=== PATIENT | female | born 1975 | race Caucasian/White ===

== ENCOUNTER 2022-11-19 16:08 | Observation (INO) ==
[~2022-11-19 16:08] MED LIST: DICLOFENAC SOD 1% GEL 100 GM TUBE EXT SCH
[2022-11-19] MEDS ORDERED: SODIUM CHLORIDE 0.9% 1000ML 2,000 ML IV ONE (16:38)
--- NOTE | 2022-11-19 16:38 | Emergency Department Note ---
Impression & Plan Superficial thrombophlebitis, Pneumonia, Elevated troponin, Palpitations ED Provider Note NAME: CHELY FELIX AGE: 47 SEX: F : 1975 ARRIVES VIA: Walk-In INFORMANT: Patient ED PROVIDER(S): Sea Davis DO CHIEF COMPLAINT: left arm pain HPI: Patient is a 47-year-old female who presents to the ED for swelling in the left forearm with redness. Patient notes that she was seen and had multiple IVs in the left forearm. He did have a difficult time. Following this she has been having swelling and redness. She was seen at the [facility] and admitted on . She has been placed on antibiotics. She was sent in today for the swelling. She notes that she feels her heart is racing. Denies any headache or change in vision. No chest pain or shortness of breath. No belly pain, nausea, vomiting, or diarrhea. No dysuria, urgency or frequency. PAST MEDICAL HISTORY:See Below PAST SURGICAL HISTORY:See Below FAMILY HISTORY:See Below SOCIAL HISTORY:See Below HOME MEDICATIONS:See Below ALLERGIES:See Below VITALS:See Below PHYSICAL EXAMINATION: GENERAL: Sitting up in bed, alert, well appearing, well nourished, no distress, non-toxic EYE EXAM: normal conjunctiva. OROPHARYNX: no exudate, no erythema, lips, buccal mucosa, and tongue normal and mucous membranes are moist NECK: supple, no nuchal rigidity, no adenopathy, non-tender LUNGS: Clear to auscultation. Normal chest wall mechanics HEART: no murmurs, S1 normal and S2 normal ABDOMEN: abdomen soft, non-tender, normo-active bowel sounds, no masses, no rebound or guarding. UPPER EXTREMITIES: Palmar surface left forearm with erythema over top of the vein which is firm and tender. Tracks up to the elbow LOWER EXTREMITIES: No pitting edema. NEURO EXAM: Normal sensorium, cranial nerves II-XII grossly intact, normal speech, no gross weakness of arms, no gross weakness of legs. MEDICAL DECISION MAKING: Patient is a 47-year-old female who presents ER for above-stated complaint. IV was established blood work was obtained. Labs show no significant leukocytosis. Mild anemia 11.8. INR unremarkable. BMP along with LFTs bilirubin was unremarkable. Troponin was elevated 25. COVID was negative. CT angio was performed with concern for pneumonia. No PEs. Venous Doppler shows superficial thrombophlebitis greater than 5 cm as I discussed this with Dr. Nishant Chauhan. Patient was given Lovenox. With the elevated troponin although an unremarkable EKG and a very subtle pneumonia which I do not feel is causing the bump in the troponin I discussed the case with the hospitalist for further observation. Patient was given IV antibiotics. patient denied any risk for brain bleeds including coughing up blood, vomiting blood, urinating blood, dark stools or blood in the stool, recent surgery or trauma or previous head bleeds Triage Nursing notes reviewed. Limited review of prior medical records performed Vital Signs: reviewed and remarkable for tachy Differential diagnosis: Cardiac ischemia, aortic dissection, pulmonary embolism, pneumothorax, pneumonia, pericarditis, myocarditis, esophageal rupture, GERD, cholecystitis, pancreatitis, musculoskeletal, as well as other pathologies. ER treatment provided: See below Diagnostics interpreted by me include EKG and cardiac monitoring as listed below: -Cardiac Monitoring: An order was placed for continuous cardiac monitoring. The monitor shows a rate of 90 with sinus rhythm. -ECG: Sinus rhythm rate of 96 Normal axis No PVCs Nonspecific ST wave in V2 -Laboratory studies:Interpreted by me as stated above in MDM and shown below. Imaging studies: Xrays: As interpreted by me:none CTs show: CT angio of the chest showed no obvious proximal clot per my read Ultrasound shows superficial thrombophlebitis Consultation(s): As described in MDM discussed with Nathanael from [facility] Procedures:none Critical Care: None Past Med/Surg History Social History Smoking Status: Current every day smoker Feels Safe at Home: Yes Results & Data (ED) Vital Signs Vital Signs - 24 hr 11/19/22 16:11 11/19/22 19:00 Temperature 36.7 C Temperature Source Temporal Artery Scan Pulse Rate 108 H Pulse Rate [Apical] 91 H Pulse Rhythm [Apical] Regular Pulse Strength [Apical] Normal Respiratory Rate 18 18 Respiratory Effort / Characteristics Non-Labored Spontaneous Non-Labored Spontaneous Respiratory Depth Normal Normal Respiratory Pattern Regular Blood Pressure 121/71 Blood Pressure [Right Arm] 111/61 Blood Pressure Mean 87 Blood Pressure Mean [Right Arm] 77 Pulse Oximetry 97 98 Oxygen Delivery Method Room Air Room Air Sepsis Recent Fever Within 48 Hours No Sepsis New/Unexplained Change in Mental Status N/A Sepsis Action Taken by Nursing No Action Required Laboratory Data 11/19/22 14:53 11/19/22 16:50 Lab Results 11/19/22 11/19/22 11/19/22 Range/Units 14:53 16:50 16:50 WBC 10.31 (4.8-10.8) K/ul RBC 4.10 L (4.20-5.40) M/uL Hgb 11.8 L (12.0-16.0) g/dl Hct 35.6 L (37.0-47.0) % MCV 86.8 (80.0-100.0) fL MCH 28.8 (25.0-34.0) pg MCHC 33.1 (32.0-36.0) g/dL RDW Std Deviation 46.5 H (36.4-46.3) fL RDW Coeff of Jonathon 14.7 H (11.5-14.5) % Plt Count 293 (130-400) K/uL MPV 10.6 (9.4-12.4) fL Immature Gran % (Auto) 0.3 % Neut % (Auto) 63.6 % Lymph % (Auto) 18.8 % Coosa % (Auto) 9.1 % Eos % (Auto) 7.8 % Baso % (Auto) 0.4 % Neut # (Auto) 6.56 H (1.40-6.50) K/uL Lymph # (Auto) 1.94 (1.2-3.4) K/uL Coosa # (Auto) 0.94 H (0.11-0.59) K/uL Eos # (Auto) 0.80 H (0-0.50) K/uL Baso # (Auto) 0.04 (0-0.2) K/uL Immature Gran # (Auto) 0.03 (0.01-0.20) K/uL PT 10.8 (9.0-12.0) Seconds INR 1.0 (0.9-1.1) Sodium 137 (136-145) mmol/L Potassium 3.5 (3.5-5.1) mmol/L Chloride 104 (98-107) mmol/L Carbon Dioxide 22 (21-32) mmol/L Anion Gap 11 (3-11) BUN 16 (6-23) mg/dl Creatinine 0.68 (0.6-1.2) mg/dl Est Cr Clr Drug Dosing 116.0 ml/min Est GFR ( Amer) 120.7 ml/min Est GFR (Non-Af Amer) 104.2 ml/min BUN/Creatinine Ratio 23.5 H (10-20) Glucose 143 H (70-99(Fasting)) mg/dl Calcium 9.6 (8.6-10.3) mg/dl Total Bilirubin 0.5 (0.2-1.0) mg/dl AST 21 (13-39) U/L ALT 19 (7-52) U/L Alkaline Phosphatase 71 (34-104) U/L Troponin I High Sens 24.8 H (0-14) pg/ml Total Protein 7.2 (6.0-8.3) gm/dl Albumin 4.1 (3.4-5.0) gm/dl Globulin 3.1 (2.5-4.0) gm/dl Albumin/Globulin Ratio 1.3 (0.9-2) SARS-CoV-2, RNA, NAAT (NEGATIVE) 11/19/22 Range/Units 21:10 WBC (4.8-10.8) K/ul RBC (4.20-5.40) M/uL Hgb (12.0-16.0) g/dl Hct (37.0-47.0) % MCV (80.0-100.0) fL MCH (25.0-34.0) pg MCHC (32.0-36.0) g/dL RDW Std Deviation (36.4-46.3) fL RDW Coeff of Jonathon (11.5-14.5) % Plt Count (130-400) K/uL MPV (9.4-12.4) fL Immature Gran % (Auto) % Neut % (Auto) % Lymph % (Auto) % Coosa % (Auto) % Eos % (Auto) % Baso % (Auto) % Neut # (Auto) (1.40-6.50) K/uL Lymph # (Auto) (1.2-3.4) K/uL Coosa # (Auto) (0.11-0.59) K/uL Eos # (Auto) (0-0.50) K/uL Baso # (Auto) (0-0.2) K/uL Immature Gran # (Auto) (0.01-0.20) K/uL PT (9.0-12.0) Seconds INR (0.9-1.1) Sodium (136-145) mmol/L Potassium (3.5-5.1) mmol/L Chloride (98-107) mmol/L Carbon Dioxide (21-32) mmol/L Anion Gap (3-11) BUN (6-23) mg/dl Creatinine (0.6-1.2) mg/dl Est Cr Clr Drug Dosing ml/min Est GFR ( Amer) ml/min Est GFR (Non-Af Amer) ml/min BUN/Creatinine Ratio (10-20) Glucose (70-99(Fasting)) mg/dl Calcium (8.6-10.3) mg/dl Total Bilirubin (0.2-1.0) mg/dl AST (13-39) U/L ALT (7-52) U/L Alkaline Phosphatase (34-104) U/L Troponin I High Sens (0-14) pg/ml Total Protein (6.0-8.3) gm/dl Albumin (3.4-5.0) gm/dl Globulin (2.5-4.0) gm/dl Albumin/Globulin Ratio (0.9-2) SARS-CoV-2, RNA, NAAT NEGATIVE (NEGATIVE) Administered Medications Enoxaparin Sodium (Enoxaparin 80 Mg/0.8 Ml Syr) 80 mg SQ Q12H ANIYA Stop: 12/19/22 20:59 Last Admin: 11/19/22 20:45 Dose: 80 mg Documented By: BALDEV Discontinued Medications Sodium Chloride (Nss 1000ml) 2,000 mls @ 999 mls/hr IV .Q2H1M ONE Stop: 11/19/22 18:38 Last Infusion: 11/19/22 20:30 Dose: 0 mls/hr Documented By: Admin: 11/19/22 17:13 Dose: 999 mls/hr Documented By: ELVIRA Ceftriaxone Sodium (Rocephin) 2,000 mg in 70 mls @ 140 mls/hr IV NOW STA Stop: 11/19/22 20:43 Last Infusion: 11/19/22 21:31 Dose: 0 mls/hr Documented By: Admin: 11/19/22 20:45 Dose: 140 mls/hr Documented By: BALDEV Azithromycin 500 mg/ Dextrose 255 mls @ 127.5 mls/hr IV NOW STA Stop: 11/19/22 22:13 Last Admin: 11/19/22 20:42 Dose: 127.5 mls/hr Documented By: BALDEV Ioversol (Optiray 320 500ml) 115 ml IV ONCE ONE Stop: 11/19/22 19:34 Last Admin: 11/19/22 19:33 Dose: 115 ml Documented By: KIMI Imaging Data Radiologist's Impression: Extremity Venous Study 11/19/22 16:37 US venous doppler UE LT CLINICAL HISTORY: Eval for DVT PROCEDURE: Left upper extremity real-time compression venous ultrasound with Duplex and color Doppler imaging. Comparison: None available at the time of this dictation. FINDINGS/IMPRESSION: There is normal compressibility of the deep venous system from the forearm through the subclavian vein. Normal vascular flow is currently identified. A superficial venous thrombus is seen in the basilic vein in the distal upper arm antecubital fossa as well as in the cephalic vein at the proximal through mid forearm. Evaluation of the cephalic vein in the upper arm is limited. ACT 112: Negative or not required by law. Electronically signed by: Nishant Chauhan M.D. 11/19/2022 6:51 PM Chest CTA 11/19/22 16:38 CT angio chest PE protocol CLINICAL HISTORY: PE TECHNIQUE: Multidetector row helical CT of the chest was performed with angiographic protocol. Coronal and sagittal reformations were obtained. Coronal and sagittal MIPS were obtained from the axial data set and were submitted for review. Automated dose lowering techniques and/or adjustment according to patient size were utilized for this exam. CT DOSE: 442.63 mGy.cm Comparison: None available at the time of this dictation. FINDINGS: Lungs and pleura: There are a few foci of airspace opacity most prominently in the right lung. Heart and pericardium: Heart size is normal. No pericardial effusion. Vessels: No evidence of pulmonary embolism. Mediastinum and shawanda: Unremarkable. Chest wall and lower neck: Subcentimeter axillary lymph nodes noted. Abdomen: Unremarkable. Bones: Degenerative changes in the thoracic spine. Partial visualization of ACDF. IMPRESSION: 1. No pulmonary embolus is seen. 2. There are a few foci of airspace opacity most probably in the right lung wh ich may represent pneumonia. ACT 112: Negative or not required by law. Electronically signed by: Nishant Chauhan M.D. 11/19/2022 8:01 PM Discharge Plan Visit Data Chief Complaint: Arm Pain Stated Complaint: LEFT ARM PAIN ED Provider: Sea Davis Discharge Problem: Superficial thrombophlebitis, Pneumonia, Elevated troponin, Palpitations Forms Stand Alone Forms: [facility] Referrals Referrals: PCP,NO [Physician] -
[2022-11-19 17:14] LABS: Basophils # (auto) 0.04 K/uL (0-0.2); Basophils % (auto) 0.4 %; Eosinophils % (auto) 7.8 %; Hematocrit (blood only) 35.6 % (37.0-47.0); Hemoglobin 11.8 g/dl (12.0-16.0); Immature Granulocytes # (auto) 0.03 K/uL (0.01-0.20); Immature Granulocytes % (auto) 0.3 %; Lymphocytes # (auto) 1.94 K/uL (1.2-3.4); Lymphocytes % (auto) 18.8 %; Mean Corpuscular Hemoglobin 28.8 pg (25.0-34.0); Mean Corpuscular Hgb Conc 33.1 g/dL (32.0-36.0); Mean Corpuscular Volume 86.8 fL (80.0-100.0); Mean Platelet Volume 10.6 fL (9.4-12.4); Monocytes # (auto) 0.94 K/uL (0.11-0.59); Monocytes % (auto) 9.1 %; Neutrophils # (auto) 6.56 K/uL (1.40-6.50); Neutrophils % (auto) 63.6 %; Platelet Count 293 K/uL (130-400); RDW Coefficient of Variation 14.7 % (11.5-14.5); RDW Standard Deviation 46.5 fL (36.4-46.3); White Blood Count 10.31 K/ul (4.8-10.8)
[2022-11-19 17:28] LABS: Albumin Globulin Ratio 1.3 (0.9-2); Albumin Level 4.1 gm/dl (3.4-5.0); BUN Creatinine Ratio 23.5 (10-20); Bilirubin,Total 0.5 mg/dl (0.2-1.0); Calcium 9.6 mg/dl (8.6-10.3); Est GFR (African American) 120.7 ml/min; Est GFR (Non-African American) 104.2 ml/min; Globulin 3.1 gm/dl (2.5-4.0); Potassium 3.5 mmol/L (3.5-5.1); Total Protein 7.2 gm/dl (6.0-8.3)
[2022-11-19 17:35] LABS: Troponin I High Sensitivity 24.8 pg/ml (0-14)
[2022-11-19 17:46] LABS: Prothrombin Time 10.8 Seconds (9.0-12.0)
--- NOTE | 2022-11-19 18:53 | Ultrasound Report ---
US venous doppler UE LT CLINICAL HISTORY: Eval for DVT PROCEDURE: Left upper extremity real-time compression venous ultrasound with Duplex and color Doppler imaging. Comparison: None available at the time of this dictation. FINDINGS/IMPRESSION: There is normal compressibility of the deep venous system from the forearm through the subclavian vei n. Normal vascular flow is currently identified. A superficial venous thrombus is seen in the basilic vein in the distal upper arm antecubital fossa as well as in the cephalic vein at the proximal throu gh mid forearm. Evaluation of the cephalic vein in the upper arm is limited. ACT 112: Negative or not required by law. Electronically signed by: Nishant Chauhan M.D. 11/19/2022 6:51 PM
[2022-11-19] MEDS ORDERED: OPTIRAY 320 500ml IV ONE (19:33)
--- NOTE | 2022-11-19 20:03 | CT Scan Report ---
CT angio chest PE protocol CLINICAL HISTORY: PE TECHNIQUE: Multidetector row helical CT of the chest was performed with angiographic protocol. Rivero l and sagittal reformations were obtained. Coronal and sagittal MIPS were obtained from the axial carlos a set and were submitted for review. Automated dose lowering techniques and/or adjustment according to patient size were utilized for this exam. CT DOSE: 442.63 mGy.cm Comparison: None available at the time of this dictation. FINDINGS: Lungs and pleura: There are a few foci of airspace opacity most prominently in the right lung. Heart and pericardium: Heart size is normal. No pericardial effusion. Vessels: No evidence of pulmonary embolism. Mediastinum and shawanda: Unremarkable. Chest wall and lower neck: Subcentimeter axillary lymph nodes noted. Abdomen: Unremarkable. Bones: Degenerative changes in the thoracic spine. Partial visualization of ACDF. IMPRESSION: 1. No pulmonary embolus is seen. 2. There are a few foci of airspace opacity most probably in the right lung which may represent pneu monia. ACT 112: Negative or not required by law. Electronically signed by: Nishant Chauhan M.D. 11/19/2022 8:01 PM
[2022-11-19] MEDS ORDERED: cefTRIAXone SODIUM 2,000 MG/70 ML BAG IV STA (20:14)
[2022-11-19] MEDS ORDERED: AZITHROMYCIN 500 MG in DEXTROSE 5% 250 ML IV STA (20:14)
[2022-11-19] MEDS ORDERED: ENOXAPARIN 1 MG/KG SC SCH (20:15)
[2022-11-19] MEDS ORDERED: ENOXAPARIN 80 MG/0.8 ML SYR SQ SCH (21:00)
--- NOTE | 2022-11-19 22:12 | History & Physical Report ---
Date of Service November 19, 2022 Assessment & Plan (1) Superficial thrombophlebitis: Plan: -Likely due to infiltrated IV site from recent hospitalization at [facility], lower suspicion for primary coagulopathy -Lovenox 80 mg given in ER -Low threshold to discontinue anticoagulation pending pt's clinical course, suspect largely superficial/local as above -Hypercoagulable workup pending -Continue local care- Voltaren gel (avoid systemic NSAIDs given previous gastric bypass history), ice/heat application (2) Pneumonia: Plan: -CTA chest with some questionable pneumonia along with pt's reported exertional dyspnea and chest pain, however pt is afebrile with no leukocytosis -Procalcitonin pending -Continue ceftriaxone, azithromycin -Low threshold to discontinue antibiotics as further workup results/pt's clinical course progresses -Trend CBC (3) Elevated troponin: Plan: -Troponin 25 on admission -EKG without acute ischemic change -Likely demand, trend to peak -Echocardiogram pending (4) Diabetes: Plan: -Hold home semaglutide -Lantus, SSI -A1C pending (5) Depression: Plan: -Noted history, will likely be discharged back to [facility] -Currently no acute safety risk -Home medication- desvenlafaxine -Unavailable in formulary, pt can have brought in from home (6) Anemia: Plan: -Hgb 11.8 on admission -Mild normocytic anemia -Iron panel ordered for AM Plan FENGI: DM2 Code status: Full DVT ppx: Lovenox Isolation: None Dispo: Medical/surgical with telemetry History of Present Illness Chief Complaint: Arm pain Primary Care Provider: Esther Doshi Pt is 47 yo F with PMH DM2, depression, gastric bypass 10+ years prior presenting with arm pain. Pt reports impulsive suicide attempt on 11/15 due to worsening life stressors by ingesting several Unisom sleeping pills. She was hospitalized at [facility] and discharged to the [facility] psychiatric facility locally. Pt notes since 11/16 she has had progressive exertional dyspnea and occasional chest pain along with sensation of rapid heartbeat. She also noticed swelling, warmth and pain along her L medial forearm, where her IV site was located at [facility]. She states her IVs were infiltrated multiple times at [facility]. She was seen by [facility] physician who started her on antibiotics (recalls this may have been Keflex) and alternating ice/heat. This did help reduce the swelling, warmth and pain initially. However, her pain continued to worsen over the weekend and was sent to ED for further evaluation. Pt arrived to ER hemodynamically stable. Initial evaluation significant for Hgb 11.8, troponin 25, chest CTA with R airspace opacities possibly representing pneumonia, US LUE with superficial venous thrombus in basilic vein in distal upper arm antecubital fossa and cephalic vein at proximal-mid forearm. ER interventions include ceftriaxone, azithromycin, 2L NSS bolus, Lovenox 80 mg SQ. At present, pt reports continued arm pain and swelling but no warmth. She denies any active chest pain or dyspnea at present. Allergies Allergy/AdvReac Type Severity Reaction Status Date / Time metformin AdvReac Nausea Verified 11/20/22 00:01 NSAIDS (Non-Steroidal AdvReac Unknown Verified 11/20/22 00:01 Anti-Inflamma Home Medications Medication Instructions Recorded Confirmed Type desvenlafaxine succinate 100 mg 100 mg PO QPM 11/19/22 11/19/22 History tablet,extended release 24 hr gabapentin 800 mg tablet 800 mg 3XD 11/19/22 11/19/22 History semaglutide 0.25 mg or 0.5 mg (2 0.5 mg subcut WK 11/19/22 11/19/22 History mg/1.5 mL) subcutaneous pen injector (Ozempic) zolpidem 10 mg tablet 10 mg QPM 11/19/22 11/19/22 History Past Med/Surg History Social History Smoking Status: Current every day smoker Feels Safe at Home: Yes Review of Systems Review of Systems: Per HPI Physical Exam Physical Exam: General: well-appearing, no acute distress, laying in bed HEENT: PERRL, EOMI, conjunctivae clear without injection, anicteric sclerae, moist mucous membranes, clear oropharynx without exudate or erythema Neck: supple, trachea midline, no thyromegaly, no JVD, no cervical lymphadenopa thy CV: RRR, normal S1 and S2, no murmurs Resp: CTAB, no increased work of breathing, no crackles or wheezes Abd: Soft, nontender, nondistended, no guarding or rebound, no hepatosplenomegaly MSK: Normal bulk of all four extremities Neuro: AOx3, no focal motor or sensory deficits Skin: no rashes or lesions, warm and dry. +Swelling, erythema and TTP of superomedial antecubital fossa without significant warmth Ext: no LE peripheral edema or erythema, no calf swelling or posterior calf tenderness, capillary refill <2s in all four extremities, 2+ LE peripheral pulses b/l Results & Data Results & Data Vital Signs (Past 12 Hours) Vital Signs Temp Pulse Pulse Resp BP BP Pulse Ox 11/19/22 19:00 91 H 18 111/61 98 11/19/22 16:11 36.7 C 108 H 18 121/71 97 O2 Del Method 11/19/22 19:00 Room Air 11/19/22 16:11 Room Air Resident Activity Tracking Resident Involvement: Resident Care Provided Care Provided: Adult Hospital Medicine
[2022-11-19] MEDS ORDERED: GLUCAGON FOR INJ 1 MG VIAL SQ PRN (23:27)
[2022-11-19] MEDS ORDERED: HEPARIN SODIUM/DEXTROSE 25,000 UNITS/500 ML BAG IV SCH (23:27)
[2022-11-19] MEDS ORDERED: Heparin IV Adult Wt-Based Standard *NO* Bolus Protocol IV SCH (23:27)
[2022-11-19] MEDS ORDERED: CARBOHYDRATES FOR HYPOGLYCEMIA PO PRN (23:27)
[2022-11-19] MEDS ORDERED: GLUCOSE 40% GEL 15 GM TUBE PO PRN (23:27)
[2022-11-19] MEDS ORDERED: ONDANSETRON INJ 2 MG/ML 2 ML VIAL IV PRN (23:27)
[2022-11-19] MEDS ORDERED: GLUCOSE 10 TAB/TUBE PO PRN (23:27)
[2022-11-19] MEDS ORDERED: DEXTROSE 50% 50 ML SYRINGE IV PRN (23:27)
[2022-11-20] MEDS: Patient's ALLERGY Info needs ENTERED SCH ×5 (00:02→00:30)
[2022-11-20] MEDS: ACETAMINOPHEN 500 MG TAB PO SCH ×4 (00:35→18:10)
[2022-11-20 01:21] LABS: Partial Thromboplastin Ratio 1.1; Partial Thromboplastin Time 30.8 Seconds (21.0-31.0)
[2022-11-20] MEDS: DICLOFENAC SOD 1% GEL 100 GM TUBE EXT SCH ×4 (02:32→18:11)
[2022-11-20 06:53] LABS: Hematocrit (blood only) 30.1 % (37.0-47.0); Hemoglobin 9.6 g/dl (12.0-16.0); Mean Corpuscular Hemoglobin 28.1 pg (25.0-34.0); Mean Corpuscular Hgb Conc 31.9 g/dL (32.0-36.0); Platelet Count 233 K/uL (130-400); RDW Coefficient of Variation 14.8 % (11.5-14.5); RDW Standard Deviation 46.9 fL (36.4-46.3); Red Blood Count 3.42 M/uL (4.20-5.40); White Blood Count 6.06 K/ul (4.8-10.8)
[2022-11-20 07:10] LABS: Prothrombin Time 11.1 Seconds (9.0-12.0)
[2022-11-20 07:11] LABS: BUN Creatinine Ratio 16.7 (10-20); Calcium 8.4 mg/dl (8.6-10.3); Creatinine Clr Calc Pharmacy 203.4 ml/min; Est GFR (African American) 141.5 ml/min; Est GFR (Non-African American) 122.1 ml/min; Potassium 3.7 mmol/L (3.5-5.1)
[2022-11-20] MEDS: INSULIN ASPART PER UNIT CHARGE SC SCH ×3 (07:48→17:44)
[2022-11-20 08:06] LABS: Estimated Average Glucose 120 mg/dl; Hemoglobin A1C 5.8 % (4.5-5.6)
[2022-11-20] MEDS ORDERED: LANTUS PER UNIT CHARGE SQ SCH (09:00)
[2022-11-20] MEDS: GABAPENTIN 800 MG TAB PO SCH ×2 (09:12→14:19)
--- NOTE | 2022-11-20 10:32 | XCELERA ---
[id number] [id number]
[2022-11-20] MEDS ORDERED: FLUTICASONE PROPIONATE NA SPR 16 GM BTL SCH (11:30)
--- NOTE | 2022-11-20 11:37 | Electrocardiogram Report ---
Test Reason : Blood Pressure : / mmHG Vent. Rate : 096 BPM Atrial Rate : 096 BPM P-R Int : 128 ms QRS Dur : 094 ms QT Int : 396 ms P-R-T Axes : 044 016 010 degrees QTc Int : 500 ms Normal sinus rhythm Prolonged QT Abnormal ECG No previous ECGs available Confirmed by Jorge Hu ([id number]) on 11/20/2022 11:37:04 AM Referred By: Esther Doshi Confirmed By:Jorge Hu
--- NOTE | 2022-11-20 12:45 | Discharge Summary ---
Date of Service November 20, 2022 Admission HPI Per Admitting Provider Pt is 47 yo F with PMH DM2, depression, gastric bypass 10+ years prior presenting with arm pain. Pt reports impulsive suicide attempt on 11/15 due to worsening life stressors by ingesting several Unisom sleeping pills. She was hospitalized at [facility] and discharged to the [facility] psychiatric [facility] locally. Pt notes since 11/16 she has had progressive exertional dyspnea and occasional chest pain along with sensation of rapid heartbeat. She also noticed swelling, warmth and pain along her L medial forearm, where her IV site was located at [facility]. She states her IVs were infiltrated multiple times at [facility]. She was seen by [facility] physician who started her on antibiotics (recalls this may have been Keflex) and alternating ice/heat. This did help reduce the swelling, warmth and pain initially. However, her pain continued to worsen over the weekend and was sent to ED for further evaluation. Pt arrived to ER hemodynamically stable. Initial evaluation significant for Hgb 11.8, troponin 25, chest CTA with R airspace opacities possibly representing pneumonia, US LUE with superficial venous thrombus in basilic vein in distal upper arm antecubital fossa and cephalic vein at proximal-mid forearm. ER in terventions include ceftriaxone, azithromycin, 2L NSS bolus, Lovenox 80 mg SQ. At present, pt reports continued arm pain and swelling but no warmth. She denies any active chest pain or dyspnea at present. Discharge Exam Physical exam: CV: RRR, no M/R/G Resp: CTA BL without rales/rhonchi/wheezing. No pleuritic chest pain. No conversational dyspnea. Lymphatics: L forearm shows old IV insertion site, no erythema, streaking vessels or edema. She comfortably can remove the rings on her L hand. BL UE are symmetrical in size, color and temperature. Eileen's sign negative in calves on both sides. Psych: mood/affect are appropriate, linear thought process, normal speech volume, no SI/HI Discharge Data Allergies Allergy/AdvReac Type Severity Reaction Status Date / Time metformin AdvReac Nausea Verified 11/20/22 00:01 NSAIDS (Non-Steroidal AdvReac Unknown Verified 11/20/22 00:01 Anti-Inflamma Consultations 11/19/22 20:59 ED Decision to Admit Stat Ordered Studies 11/19/22 16:37 US venous doppler UE LT Urgent 11/19/22 16:38 CT angio chest PE protocol Stat Hospital Course Plan Carol is a 47 y/o F who presented to the ED on 11/19/22 due to suspected superficial thrombophlebitis after IV attempts in the L forearm. She came from [place] where she was admitted 11/16/22 for self harm. In the ED, her L forearm was noted to be swollen, red, and painful with a firmly tender vein tracking up near the elbow. She was afebrile with a HR in the 90s-100s. Additional ED workup showed: -No leukocytosis. -Due to an episode of SOB while bathing herself, she underwent a CT angiogram which was negative for a pulmonary embolism but did show some small opacities in the R lung that raised suspicion for pneumonia. She was started on azithromycin and ceftriaxone. -Venous doppler of the L arm revealed superficial thrombophlebitis with venous thrombus in the basilic/cephalic vein Today 11/20/22, Carol notes her pain, redness and swelling has significantly improved in her L forearm. She has no fevers/chills. She no longer notes any size asymmetry between her upper extremities and her finger swelling has resolved. Her pain at rest is 3/10. Her SOB has improved and she is able to use the restroom without issue. She has no inspiratory chest pain, calf swelling/pain, or personal/family history of DVT/PE. She has no SI/HI and no firearms in her home, where she lives with her fiance and 3 dogs. She works for [employer] in [place]. Upon discharge today she will return to the [facility]. A&P: #superficial phlebitis -improved -continue conservative management as needed with ice, heat, Tylenol -hypercoagulable working pending #pneumonia -small opacities in the R lung based on CT angio -remains asymptomatic/afebrile, negative procal was negative, and there is no leukocytosis #self-harm -no SI/HI today, will continue to receive psychiatric care at [facility] after discharge #anemia -Hgb 9.6, Hct 30.1, iron 22, ferritin 24 -recommend iron supplementation FENGI: carb consistent, DM2 DVT prophylaxis: received 1 dose of Lovenox Full code Discharge Plan Discharge Items Reason For Visit: PNEUMONIA, THROMBOPHLEBITIS Follow-up/Referrals: Esther Doshi [Primary Care Provider] - Medications and DC Order Prescriptions: No Action desvenlafaxine succinate 100 mg tablet extended release 24 hr 100 mg PO QPM gabapentin 800 mg tablet 800 mg 3XD zolpidem 10 mg tablet 10 mg QPM Ozempic 0.25 mg or 0.5 mg(2 mg/1.5 mL) pen injector 0.5 mg SUBCUT WK Admission Data Admit Date/Time: 11/19/22 22:11 Attending Provider: Sea Huffman Admit Provider: Tata Paul Primary Care Provider: Esther Doshi Other Providers: Olman Dinero
--- NOTE | 2022-11-20 16:36 | Hospitalist Progress Note ---
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 #Superficial thrombophlebitis -Likely due to infiltrated IV site from recent hospitalization at [facility], lower suspicion for primary coagulopathy -Lovenox 80 mg given in ER -Will discontinue anticoagulation since patient doing clinically better -Hypercoagulable workup pending -pain control with analgesics, ice/heat application #Shortness of breath, resolved -presented with sob on arrival -CTA chest with some questionable pneumonia along with pt's reported exertional dyspnea and chest pain, however pt is afebrile with no leukocytosis -Procalcitonin noraml -given ceftriaxone, azithromycin in ED. Discontinued due to low suspicion for bacterial pneumonia. #Elevated troponin, peaked -Troponin 25, peaked -EKG without acute ischemic change -Likely demand, trend to peak -Echocardiogram unremarkable #Diabetes -Hold home semaglutide -Lantus, SSI -A1C 5.8 #Depression -Noted history, will be discharged back to [facility] -Currently no acute safety risk -Home medication- desvenlafaxine -Unavailable in formulary, pt can have brought in from home #Anemia -Hgb 11.8 on admission. Dropped to 9.6. -Mild normocytic anemia appears due to iron deficiency -will begin iron supplementation in outpatient setting FEN/GI: DM2 Code status: Full DVT ppx: Lovenox Dispo: med tele. Patient medically stable for discharge. [facility] (2) Pneumonia: (3) Elevated troponin: (4) Diabetes: (5) Depression: (6) Anemia: Admission and Anticipated Discharge Date Admission Date: November 19, 2022 Subjective Patient seen at bedside this morning. Left arm doing much better in regards to pain. Also now without any redness. Still some swelling but only mildly tender. Denies fever, sob, chest pain, abd pain, N/V/D. Review of Systems Review of Systems: All systems reviewed & are unremarkable except as noted in HPI & below Physical Exam Physical Exam: General: well-appearing, no acute distress, laying in bed HEENT: anicteric sclerae, moist mucous membranes Neck: supple, trachea midline CV: RRR, normal S1 and S2, no murmurs Resp: CTAB, no increased work of breathing, no crackles or wheezes Abd: Soft, nontender, nondistended, no guarding or rebound Neuro: no focal motor or sensory deficits Skin: no rashes or lesions, warm and dry. +Swelling and TTP of superomedial antecubital fossa without significant warmth or erythema Results & Data Results & Data Vital Signs (Past 12 Hours) Vital Signs Temp Pulse Pulse Resp BP Pulse Ox O2 Del Method 11/20/22 11:59 36.8 C 76 20 110/72 97 Room Air 11/20/22 08:10 37 C 84 20 116/65 98 Room Air 11/20/22 08:09 85 Laboratory Results 11/20/22 11/20/22 11/20/22 Range/Units 11:44 07:41 06:04 WBC (4.8-10.8) K/ul RBC (4.20-5.40) M/uL Hgb (12.0-16.0) g/dl Hct (37.0-47.0) % MCV (80.0-100.0) fL MCH (25.0-34.0) pg MCHC (32.0-36.0) g/dL RDW Std Deviation (36.4-46.3) fL RDW Coeff of Jonathon (11.5-14.5) % Plt Count (130-400) K/uL MPV (9.4-12.4) fL Immature Gran % (Auto) % Neut % (Auto) % Lymph % (Auto) % Mellette % (Auto) % Eos % (Auto) % Baso % (Auto) % Neut # (Auto) (1.40-6.50) K/uL Lymph # (Auto) (1.2-3.4) K/uL Mellette # (Auto) (0.11-0.59) K/uL Eos # (Auto) (0-0.50) K/uL Baso # (Auto) (0-0.2) K/uL Immature Gran # (Auto) (0.01-0.20) K/uL PT (9.0-12.0) Seconds INR (0.9-1.1) APTT (21.0-31.0) Seconds PTT Ratio LA PTT Screen Antithrombin III Activ Factor V Leiden Mutat Factor V Leiden Interp Sodium (136-145) mmol/L Potassium (3.5-5.1) mmol/L Chloride (98-107) mmol/L Carbon Dioxide (21-32) mmol/L Anion Gap (3-11) BUN (6-23) mg/dl Creatinine (0.6-1.2) mg/dl Est Cr Clr Drug Dosing ml/min Est GFR ( Amer) ml/min Est GFR (Non-Af Amer) ml/min BUN/Creatinine Ratio (10-20) Glucose (70-99(Fasting)) mg/dl POC Glucose 145 H 126 H (70-99) mg/dl Estimat Average Glucose mg/dl Hemoglobin A1c (4.5-5.6) % Calcium (8.6-10.3) mg/dl Iron (35-150) mcg/dl Ferritin (8-388) ng/ml Total Bilirubin (0.2-1.0) mg/dl AST (13-39) U/L ALT (7-52) U/L Alkaline Phosphatase (34-104) U/L Troponin I High Sens (0-14) pg/ml Total Protein (6.0-8.3) gm/dl Albumin (3.4-5.0) gm/dl Globulin (2.5-4.0) gm/dl Albumin/Globulin Ratio (0.9-2) Homocysteine Procalcitonin 0.06 (0-0.5) ng/ml Beta-2-GPI IgG Ab Beta-2-GPI IgM Ab Anti-Cardiolipin IgG Ab Anti-Cardiolipin IgM Ab SARS-CoV-2, RNA, NAAT (NEGATIVE) Prothrombin Gene Mutate Prothromb Gene Comment 11/20/22 11/20/22 11/20/22 Range/Units 06:04 06:04 06:04 WBC 6.06 (4.8-10.8) K/ul RBC 3.42 L (4.20-5.40) M/uL Hgb 9.6 L (12.0-16.0) g/dl Hct 30.1 L (37.0-47.0) % MCV 88.0 (80.0-100.0) fL MCH 28.1 (25.0-34.0) pg MCHC 31.9 L (32.0-36.0) g/dL RDW Std Deviation 46.9 H (36.4-46.3) fL RDW Coeff of Jonathon 14.8 H (11.5-14.5) % Plt Count 233 (130-400) K/uL MPV 11.0 (9.4-12.4) fL Immature Gran % (Auto) % Neut % (Auto) % Lymph % (Auto) % Mellette % (Auto) % Eos % (Auto) % Baso % (Auto) % Neut # (Auto) (1.40-6.50) K/uL Lymph # (Auto) (1.2-3.4) K/uL Mellette # (Auto) (0.11-0.59) K/uL Eos # (Auto) (0-0.50) K/uL Baso # (Auto) (0-0.2) K/uL Immature Gran # (Auto) (0.01-0.20) K/uL PT (9.0-12.0) Seconds INR (0.9-1.1) APTT (21.0-31.0) Seconds PTT Ratio LA PTT Screen Antithrombin III Activ Factor V Leiden Mutat Factor V Leiden Interp Sodium 141 (136-145) mmol/L Potassium 3.7 (3.5-5.1) mmol/L Chloride 111 H (98-107) mmol/L Carbon Dioxide 25 (21-32) mmol/L Anion Gap 5 (3-11) BUN 7 (6-23) mg/dl Creatinine 0.42 L (0.6-1.2) mg/dl Est Cr Clr Drug Dosing 203.4 ml/min Est GFR ( Amer) 141.5 ml/min Est GFR (Non-Af Amer) 122.1 ml/min BUN/Creatinine Ratio 16.7 (10-20) Glucose 127 H (70-99(Fasting)) mg/dl POC Glucose (70-99) mg/dl Estimat Average Glucose 120 mg/dl Hemoglobin A1c 5.8 H (4.5-5.6) % Calcium 8.4 L (8.6-10.3) mg/dl Iron 22 L (35-150) mcg/dl Ferritin 24.0 (8-388) ng/ml Total Bilirubin (0.2-1.0) mg/dl AST (13-39) U/L ALT (7-52) U/L Alkaline Phosphatase (34-104) U/L Troponin I High Sens (0-14) pg/ml Total Protein (6.0-8.3) gm/dl Albumin (3.4-5.0) gm/dl Globulin (2.5-4.0) gm/dl Albumin/Globulin Ratio (0.9-2) Homocysteine Procalcitonin (0-0.5) ng/ml Beta-2-GPI IgG Ab Beta-2-GPI IgM Ab Anti-Cardiolipin IgG Ab Anti-Cardiolipin IgM Ab SARS-CoV-2, RNA, NAAT (NEGATIVE) Prothrombin Gene Mutate Prothromb Gene Comment 11/20/22 11/20/22 11/20/22 Range/Units 06:04 00:10 00:10 WBC (4.8-10.8) K/ul RBC (4.20-5.40) M/uL Hgb (12.0-16.0) g/dl Hct (37.0-47.0) % MCV (80.0-100.0) fL MCH (25.0-34.0) pg MCHC (32.0-36.0) g/dL RDW Std Deviation (36.4-46.3) fL RDW Coeff of Jonathon (11.5-14.5) % Plt Count (130-400) K/uL MPV (9.4-12.4) fL Immature Gran % (Auto) % Neut % (Auto) % Lymph % (Auto) % Mellette % (Auto) % Eos % (Auto) % Baso % (Auto) % Neut # (Auto) (1.40-6.50) K/uL Lymph # (Auto) (1.2-3.4) K/uL Mellette # (Auto) (0.11-0.59) K/uL Eos # (Auto) (0-0.50) K/uL Baso # (Auto) (0-0.2) K/uL Immature Gran # (Auto) (0.01-0.20) K/uL PT 11.1 (9.0-12.0) Seconds INR 1.0 (0.9-1.1) APTT 28.0 30.8 (21.0-31.0) Seconds PTT Ratio 1.0 1.1 LA PTT Screen Cancelled Antithrombin III Activ Factor V Leiden Mutat Factor V Leiden Interp Sodium (136-145) mmol/L Potassium (3.5-5.1) mmol/L Chloride (98-107) mmol/L Carbon Dioxide (21-32) mmol/L Anion Gap (3-11) BUN (6-23) mg/dl Creatinine (0.6-1.2) mg/dl Est Cr Clr Drug Dosing ml/min Est GFR ( Amer) ml/min Est GFR (Non-Af Amer) ml/min BUN/Creatinine Ratio (10-20) Glucose (70-99(Fasting)) mg/dl POC Glucose (70-99) mg/dl Estimat Average Glucose mg/dl Hemoglobin A1c (4.5-5.6) % Calcium (8.6-10.3) mg/dl Iron (35-150) mcg/dl Ferritin (8-388) ng/ml Total Bilirubin (0.2-1.0) mg/dl AST (13-39) U/L ALT (7-52) U/L Alkaline Phosphatase (34-104) U/L Troponin I High Sens (0-14) pg/ml Total Protein (6.0-8.3) gm/dl Albumin (3.4-5.0) gm/dl Globulin (2.5-4.0) gm/dl Albumin/Globulin Ratio (0.9-2) Homocysteine Procalcitonin (0-0.5) ng/ml Beta-2-GPI IgG Ab Beta-2-GPI IgM Ab Anti-Cardiolipin IgG Ab Anti-Cardiolipin IgM Ab SARS-CoV-2, RNA, NAAT (NEGATIVE) Prothrombin Gene Mutate Prothromb Gene Comment 11/20/22 11/20/22 11/20/22 Range/Units 00:10 00:10 00:10 WBC (4.8-10.8) K/ul RBC (4.20-5.40) M/uL Hgb (12.0-16.0) g/dl Hct (37.0-47.0) % MCV (80.0-100.0) fL MCH (25.0-34.0) pg MCHC (32.0-36.0) g/dL RDW Std Deviation (36.4-46.3) fL RDW Coeff of Jonathon (11.5-14.5) % Plt Count (130-400) K/uL MPV (9.4-12.4) fL Immature Gran % (Auto) % Neut % (Auto) % Lymph % (Auto) % Mellette % (Auto) % Eos % (Auto) % Baso % (Auto) % Neut # (Auto) (1.40-6.50) K/uL Lymph # (Auto) (1.2-3.4) K/uL Mellette # (Auto) (0.11-0.59) K/uL Eos # (Auto) (0-0.50) K/uL Baso # (Auto) (0-0.2) K/uL Immature Gran # (Auto) (0.01-0.20) K/uL PT (9.0-12.0) Seconds INR (0.9-1.1) APTT (21.0-31.0) Seconds PTT Ratio LA PTT Screen Antithrombin III Activ Factor V Leiden Mutat Pending Factor V Leiden Interp Pending Sodium (136-145) mmol/L Potassium (3.5-5.1) mmol/L Chloride (98-107) mmol/L Carbon Dioxide (21-32) mmol/L Anion Gap (3-11) BUN (6-23) mg/dl Creatinine (0.6-1.2) mg/dl Est Cr Clr Drug Dosing ml/min Est GFR ( Amer) ml/min Est GFR (Non-Af Amer) ml/min BUN/Creatinine Ratio (10-20) Glucose (70-99(Fasting)) mg/dl POC Glucose (70-99) mg/dl Estimat Average Glucose mg/dl Hemoglobin A1c (4.5-5.6) % Calcium (8.6-10.3) mg/dl Iron (35-150) mcg/dl Ferritin (8-388) ng/ml Total Bilirubin (0.2-1.0) mg/dl AST (13-39) U/L ALT (7-52) U/L Alkaline Phosphatase (34-104) U/L Troponin I High Sens (0-14) pg/ml Total Protein (6.0-8.3) gm/dl Albumin (3.4-5.0) gm/dl Globulin (2.5-4.0) gm/dl Albumin/Globulin Ratio (0.9-2) Homocysteine Pending Procalcitonin (0-0.5) ng/ml Beta-2-GPI IgG Ab Beta-2-GPI IgM Ab Cancelled Anti-Cardiolipin IgG Ab Anti-Cardiolipin IgM Ab SARS-CoV-2, RNA, NAAT (NEGATIVE) Prothrombin Gene Mutate Pending Prothromb Gene Comment Pending 11/20/22 11/20/22 11/19/22 Range/Units 00:10 00:06 23:36 WBC (4.8-10.8) K/ul RBC (4.20-5.40) M/uL Hgb (12.0-16.0) g/dl Hct (37.0-47.0) % MCV (80.0-100.0) fL MCH (25.0-34.0) pg MCHC (32.0-36.0) g/dL RDW Std Deviation (36.4-46.3) fL RDW Coeff of Jonathon (11.5-14.5) % Plt Count (130-400) K/uL MPV (9.4-12.4) fL Immature Gran % (Auto) % Neut % (Auto) % Lymph % (Auto) % Mellette % (Auto) % Eos % (Auto) % Baso % (Auto) % Neut # (Auto) (1.40-6.50) K/uL Lymph # (Auto) (1.2-3.4) K/uL Mellette # (Auto) (0.11-0.59) K/uL Eos # (Auto) (0-0.50) K/uL Baso # (Auto) (0-0.2) K/uL Immature Gran # (Auto) (0.01-0.20) K/uL PT (9.0-12.0) Seconds INR (0.9-1.1) APTT (21.0-31.0) Seconds PTT Ratio LA PTT Screen Pending Antithrombin III Activ Pending Factor V Leiden Mutat Factor V Leiden Interp Sodium (136-145) mmol/L Potassium (3.5-5.1) mmol/L Chloride (98-107) mmol/L Carbon Dioxide (21-32) mmol/L Anion Gap (3-11) BUN (6-23) mg/dl Creatinine (0.6-1.2) mg/dl Est Cr Clr Drug Dosing ml/min Est GFR ( Amer) ml/min Est GFR (Non-Af Amer) ml/min BUN/Creatinine Ratio (10-20) Glucose (70-99(Fasting)) mg/dl POC Glucose 142 H (70-99) mg/dl Estimat Average Glucose mg/dl Hemoglobin A1c (4.5-5.6) % Calcium (8.6-10.3) mg/dl Iron (35-150) mcg/dl Ferritin (8-388) ng/ml Total Bilirubin (0.2-1.0) mg/dl AST (13-39) U/L ALT (7-52) U/L Alkaline Phosphatase (34-104) U/L Troponin I High Sens 23.9 H (0-14) pg/ml Total Protein (6.0-8.3) gm/dl Albumin (3.4-5.0) gm/dl Globulin (2.5-4.0) gm/dl Albumin/Globulin Ratio (0.9-2) Homocysteine Procalcitonin (0-0.5) ng/ml Beta-2-GPI IgG Ab Pending Beta-2-GPI IgM Ab Pending Anti-Cardiolipin IgG Ab Pending Anti-Cardiolipin IgM Ab Pending SARS-CoV-2, RNA, NAAT (NEGATIVE) Prothrombin Gene Mutate Prothromb Gene Comment 11/19/22 11/19/22 11/19/22 Range/Units 21:10 16:50 16:50 WBC (4.8-10.8) K/ul RBC (4.20-5.40) M/uL Hgb (12.0-16.0) g/dl Hct (37.0-47.0) % MCV (80.0-100.0) fL MCH (25.0-34.0) pg MCHC (32.0-36.0) g/dL RDW Std Deviation (36.4-46.3) fL RDW Coeff of Jonathon (11.5-14.5) % Plt Count (130-400) K/uL MPV (9.4-12.4) fL Immature Gran % (Auto) % Neut % (Auto) % Lymph % (Auto) % Mellette % (Auto) % Eos % (Auto) % Baso % (Auto) % Neut # (Auto) (1.40-6.50) K/uL Lymph # (Auto) (1.2-3.4) K/uL Mellette # (Auto) (0.11-0.59) K/uL Eos # (Auto) (0-0.50) K/uL Baso # (Auto) (0-0.2) K/uL Immature Gran # (Auto) (0.01-0.20) K/uL PT 10.8 (9.0-12.0) Seconds INR 1.0 (0.9-1.1) APTT (21.0-31.0) Seconds PTT Ratio LA PTT Screen Antithrombin III Activ Factor V Leiden Mutat Factor V Leiden Interp Sodium 137 (136-145) mmol/L Potassium 3.5 (3.5-5.1) mmol/L Chloride 104 (98-107) mmol/L Carbon Dioxide 22 (21-32) mmol/L Anion Gap 11 (3-11) BUN 16 (6-23) mg/dl Creatinine 0.68 (0.6-1.2) mg/dl Est Cr Clr Drug Dosing 116.0 ml/min Est GFR ( Amer) 120.7 ml/min Est GFR (Non-Af Amer) 104.2 ml/min BUN/Creatinine Ratio 23.5 H (10-20) Glucose 143 H (70-99(Fasting)) mg/dl POC Glucose (70-99) mg/dl Estimat Average Glucose mg/dl Hemoglobin A1c (4.5-5.6) % Calcium 9.6 (8.6-10.3) mg/dl Iron (35-150) mcg/dl Ferritin (8-388) ng/ml Total Bilirubin 0.5 (0.2-1.0) mg/dl AST 21 (13-39) U/L ALT 19 (7-52) U/L Alkaline Phosphatase 71 (34-104) U/L Troponin I High Sens 24.8 H (0-14) pg/ml Total Protein 7.2 (6.0-8.3) gm/dl Albumin 4.1 (3.4-5.0) gm/dl Globulin 3.1 (2.5-4.0) gm/dl Albumin/Globulin Ratio 1.3 (0.9-2) Homocysteine Procalcitonin (0-0.5) ng/ml Beta-2-GPI IgG Ab Beta-2-GPI IgM Ab Anti-Cardiolipin IgG Ab Anti-Cardiolipin IgM Ab SARS-CoV-2, RNA, NAAT NEGATIVE (NEGATIVE) Prothrombin Gene Mutate Prothromb Gene Comment 11/19/22 Range/Units 14:53 WBC 10.31 (4.8-10.8) K/ul RBC 4.10 L (4.20-5.40) M/uL Hgb 11.8 L (12.0-16.0) g/dl Hct 35.6 L (37.0-47.0) % MCV 86.8 (80.0-100.0) fL MCH 28.8 (25.0-34.0) pg MCHC 33.1 (32.0-36.0) g/dL RDW Std Deviation 46.5 H (36.4-46.3) fL RDW Coeff of Jonathon 14.7 H (11.5-14.5) % Plt Count 293 (130-400) K/uL MPV 10.6 (9.4-12.4) fL Immature Gran % (Auto) 0.3 % Neut % (Auto) 63.6 % Lymph % (Auto) 18.8 % Mellette % (Auto) 9.1 % Eos % (Auto) 7.8 % Baso % (Auto) 0.4 % Neut # (Auto) 6.56 H (1.40-6.50) K/uL Lymph # (Auto) 1.94 (1.2-3.4) K/uL Mellette # (Auto) 0.94 H (0.11-0.59) K/uL Eos # (Auto) 0.80 H (0-0.50) K/uL Baso # (Auto) 0.04 (0-0.2) K/uL Immature Gran # (Auto) 0.03 (0.01-0.20) K/uL PT (9.0-12.0) Seconds INR (0.9-1.1) APTT (21.0-31.0) Seconds PTT Ratio LA PTT Screen Antithrombin III Activ Factor V Leiden Mutat Factor V Leiden Interp Sodium (136-145) mmol/L Potassium (3.5-5.1) mmol/L Chloride (98-107) mmol/L Carbon Dioxide (21-32) mmol/L Anion Gap (3-11) BUN (6-23) mg/dl Creatinine (0.6-1.2) mg/dl Est Cr Clr Drug Dosing ml/min Est GFR ( Amer) ml/min Est GFR (Non-Af Amer) ml/min BUN/Creatinine Ratio (10-20) Glucose (70-99(Fasting)) mg/dl POC Glucose (70-99) mg/dl Estimat Average Glucose mg/dl Hemoglobin A1c (4.5-5.6) % Calcium (8.6-10.3) mg/dl Iron (35-150) mcg/dl Ferritin (8-388) ng/ml Total Bilirubin (0.2-1.0) mg/dl AST (13-39) U/L ALT (7-52) U/L Alkaline Phosphatase (34-104) U/L Troponin I High Sens (0-14) pg/ml Total Protein (6.0-8.3) gm/dl Albumin (3.4-5.0) gm/dl Globulin (2.5-4.0) gm/dl Albumin/Globulin Ratio (0.9-2) Homocysteine Procalcitonin (0-0.5) ng/ml Beta-2-GPI IgG Ab Beta-2-GPI IgM Ab Anti-Cardiolipin IgG Ab Anti-Cardiolipin IgM Ab SARS-CoV-2, RNA, NAAT (NEGATIVE) Prothrombin Gene Mutate Prothromb Gene Comment Resident Activity Tracking Resident Involvement: Resident Care Provided Care Provided: Adult Hospital Medicine
--- NOTE | 2022-11-20 18:31 | Discharge Summary ---
Date of Service November 20, 2022 Principal Diagnosis Superficial Thrombophlebitis Discharge Exam General: well-appearing, no acute distress, laying in bed HEENT: anicteric sclerae, moist mucous membranes Neck: supple, trachea midline CV: RRR, normal S1 and S2, no murmurs Resp: CTAB, no increased work of breathing, no crackles or wheezes Abd: Soft, nontender, nondistended, no guarding or rebound Neuro: no focal motor or sensory deficits Skin: no rashes or lesions, warm and dry. +Swelling and TTP of superomedial antecubital fossa without significant warmth or erythema Discharge Data Allergies Allergy/AdvReac Type Severity Reaction Status Date / Time metformin AdvReac Nausea Verified 11/20/22 00:01 NSAIDS (Non-Steroidal AdvReac Unknown Verified 11/20/22 00:01 Anti-Inflamma Consultations 11/19/22 20:59 ED Decision to Admit Stat 11/20/22 18:24 Consult Psychiatry Routine Ordered Studies Laboratory Results WBC 6.06 K/ul (4.8-10.8) 11/20/22 06:04 RBC 3.42 M/uL (4.20-5.40) L 11/20/22 06:04 Hgb 9.6 g/dl (12.0-16.0) L 11/20/22 06:04 Hct 30.1 % (37.0-47.0) L 11/20/22 06:04 MCV 88.0 fL (80.0-100.0) 11/20/22 06:04 MCH 28.1 pg (25.0-34.0) 11/20/22 06:04 MCHC 31.9 g/dL (32.0-36.0) L 11/20/22 06:04 RDW Std Deviation 46.9 fL (36.4-46.3) H 11/20/22 06:04 RDW Coeff of Jonathon 14.8 % (11.5-14.5) H 11/20/22 06:04 Plt Count 233 K/uL (130-400) 11/20/22 06:04 MPV 11.0 fL (9.4-12.4) 11/20/22 06:04 Immature Gran % (Auto) 0.3 % 11/19/22 14:53 Neut % (Auto) 63.6 % 11/19/22 14:53 Lymph % (Auto) 18.8 % 11/19/22 14:53 Sandoval % (Auto) 9.1 % 11/19/22 14:53 Eos % (Auto) 7.8 % 11/19/22 14:53 Baso % (Auto) 0.4 % 11/19/22 14:53 Neut # (Auto) 6.56 K/uL (1.40-6.50) H 11/19/22 14:53 Lymph # (Auto) 1.94 K/uL (1.2-3.4) 11/19/22 14:53 Sandoval # (Auto) 0.94 K/uL (0.11-0.59) H 11/19/22 14:53 Eos # (Auto) 0.80 K/uL (0-0.50) H 11/19/22 14:53 Baso # (Auto) 0.04 K/uL (0-0.2) 11/19/22 14:53 Immature Gran # (Auto) 0.03 K/uL (0.01-0.20) 11/19/22 14:53 PT 11.1 Seconds (9.0-12.0) 11/20/22 06:04 INR 1.0 (0.9-1.1) 11/20/22 06:04 APTT 28.0 Seconds (21.0-31.0) 11/20/22 06:04 PTT Ratio 1.0 11/20/22 06:04 LA PTT Screen Cancelled 11/20/22 00:10 Sodium 141 mmol/L (136-145) 11/20/22 06:04 Potassium 3.7 mmol/L (3.5-5.1) 11/20/22 06:04 Chloride 111 mmol/L (98-107) H 11/20/22 06:04 Carbon Dioxide 25 mmol/L (21-32) 11/20/22 06:04 Anion Gap 5 (3-11) 11/20/22 06:04 BUN 7 mg/dl (6-23) 11/20/22 06:04 Creatinine 0.42 mg/dl (0.6-1.2) L 11/20/22 06:04 Est Cr Clr Drug Dosing 203.4 ml/min 11/20/22 06:04 Est GFR ( Amer) 141.5 ml/min 11/20/22 06:04 Est GFR (Non-Af Amer) 122.1 ml/min 11/20/22 06:04 BUN/Creatinine Ratio 16.7 (10-20) 11/20/22 06:04 Glucose 127 mg/dl (70-99(Fasting)) H 11/20/22 06:04 POC Glucose 116 mg/dl (70-99) H 11/20/22 16:45 Estimat Average Glucose 120 mg/dl 11/20/22 06:04 Hemoglobin A1c 5.8 % (4.5-5.6) H 11/20/22 06:04 Calcium 8.4 mg/dl (8.6-10.3) L 11/20/22 06:04 Iron 22 mcg/dl (35-150) L 11/20/22 06:04 Ferritin 24.0 ng/ml (8-388) 11/20/22 06:04 Total Bilirubin 0.5 mg/dl (0.2-1.0) 11/19/22 16:50 AST 21 U/L (13-39) 11/19/22 16:50 ALT 19 U/L (7-52) 11/19/22 16:50 Alkaline Phosphatase 71 U/L (34-104) 11/19/22 16:50 Troponin I High Sens 23.9 pg/ml (0-14) H 11/20/22 00:06 Total Protein 7.2 gm/dl (6.0-8.3) 11/19/22 16:50 Albumin 4.1 gm/dl (3.4-5.0) 11/19/22 16:50 Globulin 3.1 gm/dl (2.5-4.0) 11/19/22 16:50 Albumin/Globulin Ratio 1.3 (0.9-2) 11/19/22 16:50 Procalcitonin 0.06 ng/ml (0-0.5) 11/20/22 06:04 Beta-2-GPI IgM Ab Cancelled 11/20/22 00:10 SARS-CoV-2, RNA, NAAT NEGATIVE (NEGATIVE) 11/19/22 21:10 Impressions Extremity Venous Study 11/19/22 16:37 US venous doppler UE LT CLINICAL HISTORY: Eval for DVT PROCEDURE: Left upper extremity real-time compression venous ultrasound with Duplex and color Doppler imaging. Comparison: None available at the time of this dictation. FINDINGS/IMPRESSION: There is normal compressibility of the deep venous system from the forearm through the subclavian vein. Normal vascular flow is currently identified. A superficial venous thrombus is seen in the basilic vein in the distal upper arm antecubital fossa as well as in the cephalic vein at the proximal through mid forearm. Evaluation of the cephalic vein in the upper arm is limited. ACT 112: Negative or not required by law. Electronically signed by: Nishant Chauhan M.D. 11/19/2022 6:51 PM Chest CTA 11/19/22 16:38 CT angio chest PE protocol CLINICAL HISTORY: PE TECHNIQUE: Multidetector row helical CT of the chest was performed with angiographic protocol. Coronal and sagittal reformations were obtained. Coronal and sagittal MIPS were obtained from the axial data set and were submitted for review. Automated dose lowering techniques and/or adjustment according to patient size were utilized for this exam. CT DOSE: 442.63 mGy.cm Comparison: None available at the time of this dictation. FINDINGS: Lungs and pleura: There are a few foci of airspace opacity most prominently in the right lung. Heart and pericardium: Heart size is normal. No pericardial effusion. Vessels: No evidence of pulmonary embolism. Mediastinum and shawanda: Unremarkable. Chest wall and lower neck: Subcentimeter axillary lymph nodes noted. Abdomen: Unremarkable. Bones: Degenerative changes in the thoracic spine. Partial visualization of ACDF. IMPRESSION: 1. No pulmonary embolus is seen. 2. There are a few foci of airspace opacity most probably in the right lung which may represent pneumonia. ACT 112: Negative or not required by law. Electronically signed by: Nishant Chauhan M.D. 11/19/2022 8:01 PM Hospital Course (1) Superficial thrombophlebitis: 47 yo F with PMHx DM2, depression, gastric bypass 10+ years prior presenting with arm pain. #Superficial thrombophlebitis -Likely due to infiltrated IV site from recent hospitalization at [facility], [facility] suspicion for primary coagulopathy -Lovenox 80 mg given in ER -Will discontinue anticoagulation since patient doing clinically better -Hypercoagulable workup pending -pain control with analgesics, ice/heat application #Shortness of breath, resolved -presented with sob on arrival -CTA chest with some questionable pneumonia along with pt's reported exertional dyspnea and chest pain, however pt is afebrile with no leukocytosis -Procalcitonin noraml -given ceftriaxone, azithromycin in ED. Discontinued due to low suspicion for bacterial pneumonia. #Elevated troponin, peaked -Troponin 25, peaked -EKG without acute ischemic change -Likely demand, trend to peak -Echocardiogram unremarkable #Diabetes -Cont. home semaglutide -A1C 5.8 #Depression -Noted history, will be discharged back to [facility] -Currently no acute safety risk -Home medication- desvenlafaxine -Unavailable in formulary. Held until return to [facility]. #Anemia -Hgb 11.8 on admission. Dropped to 9.6. -Mild normocytic anemia appears due to iron deficiency -Will begin iron supplementation in outpatient setting (2) Pneumonia: (3) Elevated troponin: (4) Diabetes: (5) Depression: (6) Anemia: Total Time Total Time Spent Total Time Spent (In Minutes): <30 Discharge Plan Discharge Items Patient Disposition: Transfer [facility] Reason For Visit: PNEUMONIA, THROMBOPHLEBITIS Discharge Diagnosis: Superficial Thrombophlebitis Activity: Per Instructions section Non-emergency contact: Primary Care Provider Call non-emergency contact if: you have any medication questions, your symptoms worsen and your pain is not controlled Follow-up/Referrals: Esther Doshi [Primary Care Provider] - Diet: Carb Consistent or DM2 Addtl Attending Provider Instructions: You were admitted to the hospital for pain in your left arm. It was concluded that this was due to a superficial blood clot which was likely due to infiltration of your IV during her hospital stay at [facility]. In the hospital we gave you a dose of blood thinner which did help with your pain symptoms. Going forward it would be reasonable to take ibuprofen or Tylenol to control your pain. You may also try ice and/or heat. Upon arrival you also had some shortness of breath. Initially in the emergency department it was thought that this may be from an underlying pneumonia however on reevaluation we are less concerned that this was due to a bacterial cause and have taken you off antibiotics. You can monitor your breathing going forward but hopefully this is now resolved. While here it was found that you are also anemic due to low iron levels. Going forward you should take an iron pill (325mg ferrous sulfate) Sunday for the next few months and follow-up with your primary care provider. It is most efficient to take the iron pill with vitamin C such as orange juice. Pending Studies at Discharge: Yes (hypercoagulable workup) Stand-Alone Forms: My [facility] Medications and DC Order Prescriptions: New ferrous sulfate [Iron (ferrous sulfate)] 325 mg (65 mg iron) tablet 325 mg PO Q OTHER DAY Qty: 30 0RF Continued desvenlafaxine succinate 100 mg tablet extended release 24 hr 100 mg PO QPM gabapentin 800 mg tablet 800 mg 3XD zolpidem 10 mg tablet 10 mg QPM Ozempic 0.25 mg or 0.5 mg(2 mg/1.5 mL) pen injector 0.5 mg SUBCUT WK Discharge Orders: Discharge Order (Routine); Ordered 11/20/22 Ordered By: Louis Wolf Admission Data Admit Date/Time: 11/19/22 22:11 Attending Provider: Sea Huffman Admit Provider: Tata Paul Primary Care Provider: Esther Doshi Other Providers: Olman Dinero ; Sally Hernández ; Veronika Zimmer ; Edis Presley Supervising Physician Co-Signing Physician Notes I personally examined the patient and verified all aguirre points of history and exam, discussed case, and agree with decision making with Dr Wolf Arm feels better. Breathing feels betternotes that she felt fine 2 days ago, then yesterday was very short of breath even getting in or out of the shower, but now feels fine again. Has been walking around some with no dyspnea on exertion. Her left arm is no longer swollen or painful. Vitals noted, in g eneral she is awake and alert pleasant no distress. HEENT normocephalic atraumatic mucous membranes moist. Breathing unlabored no accessory muscle use good effort. Skin shows no rashes no pallor or icterus. Her left upper extremity shows no erythema no edema she is minimally tender at her distal biceps, but I cannot feel any palpable phlebitis. CBC, troponins, basic metabolic panel, echocardiogram, CT chest all reviewed. Left arm phlebitisresolved. No specific treatment needed Transient dyspnea on exertionvery mild pneumonia noted on CT (radiology noted, I was actually not able to visualize myself on review of the films)appears to have resolved. With her nominal troponin, cardiac etiology entertained in the differentials, but with her echocardiogram showing LVH with troponin being flat at 24, EKG without ischemic changesand symptoms with no preceding symptomatology, and totally resolvedI really suspect it was from a mild pneumonia. Certainly if she has any recurrence of symptoms stress testing could be undertaken, but does not appear to be necessary at this time. Further, with low inflammatory markers, I suspect the pneumonia (again quite mild) was viral and no further treatment is needed. Stable for return to inpatient [facility] Activity Tracking Resident Involvement: Resident Care Provided Care Provided: Adult Hospital Medicine
--- NOTE | 2022-11-20 18:50 | Billing Data ---
Date of Service November 20, 2022 Coding Level of Care Code 16880 IN/OBS DISCH 30 MIN/LESS
[2022-11-20] MEDS ORDERED: cefTRIAXone SODIUM 2,000 MG in DEXTROSE 5% 50 ML IV SCH (19:30)
[2022-11-20] MEDS ORDERED: AZITHROMYCIN 250 MG in DEXTROSE 5% 250 ML IV SCH (22:00)
--- NOTE | 2022-11-21 08:07 | Psychiatric Consultation ---
Date of Consultation November 21, 2022 Impression / Recommendations Impression Patirnt with recent suicide attempt via ingestion of Unisom transferred for medical care for [facility]. She was medically cleared last night and re-accepted and transferred back to the [facility] for ongoing inpatient psychiatric treatment before consult was able to be seen. Agree with her being back the [facility] for ongoing psychiatric treatment. (1) Depression: Plan -Patient returned to the [facility] for continuation of her inpatient psychiatric treatment Psych History Allergies Allergy/AdvReac Type Severity Reaction Status Date / Time metformin AdvReac Nausea Verified 11/20/22 00:01 NSAIDS (Non-Steroidal AdvReac Unknown Verified 11/20/22 00:01 Anti-Inflamma Home Medications Medication Instructions Recorded Confirmed Type desvenlafaxine succinate 100 mg 100 mg PO QPM 11/19/22 11/19/22 History tablet,extended release 24 hr gabapentin 800 mg tablet 800 mg 3XD 11/19/22 11/19/22 History semaglutide 0.25 mg or 0.5 mg (2 0.5 mg subcut WK 11/19/22 11/19/22 History mg/1.5 mL) subcutaneous pen injector (Ozempic) zolpidem 10 mg tablet 10 mg QPM 11/19/22 11/19/22 History ferrous sulfate 325 mg (65 mg 325 mg PO Q OTHER DAY anemia #30 11/20/22 Rx iron) tablet (Iron (ferrous tabs sulfate)) Patient History Social History Smoking Status: Current every day smoker Cigarettes Per Day: 10; Hx Alcohol Use: No Hx Substance Use: No Preferred Language: Pashto Communication Ability: Effective General Studies Program Chair Required: No Beliefs That Will Affect Care: None Current Living Situation: Significant Other Feels Safe at Home: Yes Assistive Devices: None Physical Exam Vital Signs (Past 24 Hours): Last Vital Signs Temp 36.5 C 11/20/22 18:39 Pulse 101 H 11/20/22 18:39 Resp 20 11/20/22 18:39 BP 130/79 11/20/22 18:39 Pulse Ox 100 11/20/22 18:39 O2 Del Method Room Air 11/20/22 16:52 Coding Level of Care Code None Diagnoses Depression F32.A
== END 2022-11-20 20:52 ==
LOC: ED 16:08 → INTOOBSV 22:11 → 2W 22:11 → SUATTDRO 22:11 → 2W 23:36